=== PATIENT | female | born 1965 | race Caucasian/White ===

== ENCOUNTER → 2019-04-04 | Outpatient (REF) | payer OTHER ==
[~2019-04-04] MED LIST: AMET1TAB3 PO; CALTTAB6 PO; HYDR-3715 PO; MOTR200T44 PO; MULTCAP PO
== END ==
LOC: M LAB REF 14:49
PROVIDERS: ATTEND Ophthalmology
DX: D23.122 Other benign neoplasm of skin of left lower eyelid, including canthus (principal)